=== PATIENT | female | born 1980 | race African-American/Black ===

== ENCOUNTER 2017-10-21 19:08 | Emergency (ER) | payer MEDICAID ==
[~2017-10-21] VITALS: Ht 165.1 cm; Wt 65.9 kg
[2017-10-21 19:25] VITALS: BP 118/75
[2017-10-21] MEDS ORDERED: BACITRACIN 0.9 GM PACKET OINTMENT TP ONE (19:30)
== END 2017-10-21 19:52 | disposition home or self-care (01) ==
LOC: EMS 19:14
DX: S70.311A Abrasion, right thigh, initial encounter (principal); L08.89 Other specified local infections of the skin and subcutaneous tissue; W22.8XXA Striking against or struck by other objects, initial encounter; Y93.89 Activity, other specified; Y92.830 Public park as the place of occurrence of the external cause; Y99.8 Other external cause status
CPT/HCPCS: 99283

== ENCOUNTER 2019-09-01 08:19 | Emergency (ER) | payer MEDICAID ==
[~2019-09-01] VITALS: Ht 152.4 cm; Wt 63.6 kg
[2019-09-01 08:20] VITALS: BP 117/80
[2019-09-01] MEDS ORDERED: MIRENA IUD IN (08:26)
== END 2019-09-01 09:57 | disposition home or self-care (01) ==
LOC: EMS 08:22
DX: H92.01 Otalgia, right ear (principal)

== ENCOUNTER 2019-09-04 09:33 | Emergency (ER) | payer MEDICAID ==
[~2019-09-04] VITALS: Ht 152.4 cm; Wt 63.6 kg
[~2019-09-04 09:33] MED LIST: MIRENA IUD IN
[2019-09-04 12:30] VITALS: BP 114/69
== END 2019-09-04 12:41 | disposition home or self-care (01) ==
LOC: EMS 09:34
DX: J32.9 Chronic sinusitis, unspecified (principal); H66.001 Acute suppurative otitis media without spontaneous rupture of ear drum, right ear